=== PATIENT | female | born 2000 | race Caucasian/White ===

== ENCOUNTER 2025-06-04 08:01 | Emergency (ER) | payer OTHER, SELFPAY ==
[2025-06-04 08:11] VITALS: BP 115/80; PULSE 102; RESP 16; TEMP 37.1; O2SAT 100
[2025-06-04 08:26] LABS: EDSTREPNEGPOS1 Positive (Negative)
--- NOTE | 2025-06-04 08:43 | ED_ITS ---
HPI - URI/Sore Throat General Chief Complaint: Upper Respiratory Infection Stated Complaint: Sore throat Time Seen by Provider: 06/04/25 08:15 Source: patient and RN notes reviewed Mode of arrival: ambulatory Limitations: no limitations History of Present Illness HPI Narrative: 24-year-old female presents to the [facility] complaining of sore throat since yesterday. 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 Patient denies any other upper respiratory symptoms, fevers advice, chills, nausea vomiting, diarrhea, chest pain, shortness of breath, cough, or any other symptoms. Patient denies any significant past medical history. Related Data Allergies Allergy/AdvReac Type Severity Reaction Status Date / Time No Known Allergies Allergy Verified 06/04/25 08:14 Review of Systems Review of Systems: CONSTITUTIONAL: Denies fever, chills, or sweats. EYES: Denies visual changes, redness, or discharge. ENT: Denies rhinorrhea, congestion, dysphagia, or otalgia. Positive for sore throat CARDIOVASCULAR: Denies chest pain, palpitations, or edema. RESPIRATORY: Denies cough or dyspnea. GASTROINTESTINAL: Denies abdominal pain, nausea, vomiting, or diarrhea. GENITOURINARY: Denies dysuria or hematuria. SKIN: Denies rash or itching. MUSCULOSKELETAL: Denies back pain, joint pain, or myalgia. NEUROLOGIC: Denies headache, numbness, or weakness. PSYCHIATRIC: Denies anxiety or depression. All other systems reviewed are negative, except as documented in HPI. [facility] Family History Family History Grandparent Heart disease Cerebrovascular accident Carcinoma of colon Other Breast cancer Social History Social History Smoking status: Never smoker Alcohol intake: current Substance use: never Substance use type: does not use Do You Feel Safe in your Home?: Yes Lack of Transportation: No Lack of Food: Never True Current Housing: I Have Housing Concerned About Future Housing: No Difficulty Paying Gas/Electric Bills: No Difficulty Paying for Meds: No Currently Unemployed: No Education: High School Diploma/GED Difficulty w/ Childcare or Family Care: No Living arrangements: dorm student housing Occupation/Education: student Gender identity (if verbalized by the patient): Female Comments At the time of my signature, I reviewed and agree with the nursing past medical, surgical, social, and family history. There is no relevant family history pertinent to the patient complaint. Exam Narrative: GENERAL: This is a well-nourished, well-developed adult, in no apparent distress. They are non ill-appearing, nontoxic appearing. HEAD: normocephalic, atraumatic. EYES: Sclera clear/white. Conjunctiva normal. Vision is grossly intact. Extraocular movements intact EARS: External ears normal, auditory canals clear and without drainage, TMs normal without perforation. Hearing grossly intact. NOSE: External nose normal with no obvious nasal discharge, nasal turbinates without redness, no rhinorrhea. THROAT: Mucous membranes moist, posterior pharynx erythematous, without exudate. Tonsils 2+ erythematous with exudate. Uvula midline. NECK: Neck supple, non-tender without lymphadenopathy, masses or thyromegaly. CARDIOVASCULAR: Regular rate and rhythm without murmurs, gallops, or rubs. RESPIRATORY: Clear to auscultation. Breath sounds equal bilaterally. No wheezes, rales, or rhonchi. SKIN: warm, Dry, intact with no suspicious lesions or rash, good texture and turgor. NEURO: awake, alert, and oriented to person, place and time. There were no obvious focal neurologic abnormalities. EXTREMITIES: No joint tenderness, effusion, or edema noted. BACK: Nontender without deformity. No CVA tenderness. Course Course Emergency Course: Portions of this record may have been created with voice recognition software Level of Care: Express Care Visit Vital Signs Vital signs: Vital Signs Temperature 98.7 F 06/04/25 08:11 Pulse Rate 102 H 06/04/25 08:11 Respiratory Rate 16 06/04/25 08:11 Blood Pressure 115/80 06/04/25 08:11 Pulse Oximetry 100 06/04/25 08:11 Temperature 98.7 F 06/04/25 08:11 Pulse Rate 102 H 06/04/25 08:11 Respiratory Rate 16 06/04/25 08:11 Blood Pressure 115/80 06/04/25 08:11 Pulse Oximetry 100 06/04/25 08:11 Reviewed MDM - URI/Sore Throat MDM Narrative Medical decision making narrative: Rapid strep is positive. Symptoms clinically consistent with strep pharyngitis. Will treat with amoxicillin. Discussed physical exam findings. Advised supportive measures and signs/symptoms to go to the ER. Pt is appropriate for outpt treatment and f/u. Differential Diagnosis Differential diagnosis: Likely upper respiratory infection, sinusitis, viral infection and pharyngitis Lab Data Attestation: I reviewed the patient's lab results. Labs: Lab Results 06/04/25 Range/Units 08:25 POC Grp A Strep Screen Positive (Negative) Critical Care Time Critical Care Time Critical Care Time: No Discharge Plan Discharge Clinical Impression: Pharyngitis Qualifiers: Pharyngitis/tonsillitis etiology: streptococcus Qualified Code(s): J02.0 - Streptococcal pharyngitis Patient Disposition: Home Condition: Stable Instructions: Antibiotic Form, Strep Throat (ED) Additional Instructions: You tested positive for strep throat. ?Please take the amoxicillin as prescribed until gone. ?You will be contagious for 24 hours after starting the medication. ?After 24 hours on antibiotics throw tooth brush away and start using a new one. Wash your sheets and cup/water bottle that is used daily. Do not share drinks. Take Tylenol or Ibuprofen as needed for pain or fever, follow instructions on the bottle. Salt water gargle rinses and spit for sore throat. ?Rest and stay hydrated. ?Follow up with your PCP in 3 days if symptoms are not improving. ?Go to the ER immediately if you develop worsening symptoms such as shortness of breath, vomiting, chest pain, difficulty swallowing, or any serious concerns. ? Patient Language: Marshallese Prescriptions: New amoxicillin 500 mg tablet 500 mg PO Q12H 10 Days Qty: 20 0RF No Action norethindrone-e.estradiol-iron [07/29 (28)] 1 mg-20 mcg (21)/75 mg (7) tablet 1 tablet PO DAILY Qty: 84 4RF Follow-up/Referrals: Dain,LIDYA Torres [Primary Care Provider, Unknown] Time of Disposition: 08:31
== END 2025-06-04 08:32 | disposition home or self-care (01) ==
PROVIDERS: PCP Physician Assistant
DX: J02.0 Streptococcal pharyngitis (principal)
CPT/HCPCS: 87880; 99213; G0463